=== PATIENT | female | born 1990 | race Caucasian/White ===

== ENCOUNTER 2017-02-14 10:04 | Emergency (ER) | payer MEDICAID ==
[2016-02-17 19:11] VITALS: BMI 21.1
[~2017-02-14 10:04] MED LIST: DIFLUCAN150 MG PO; MOTRIN600 MG; PERCOCET 2.5/321 TAB PO
[2017-02-14 11:07] LABS: BASOPHILS 0.2 % (0-2); EOSINOPHILS 0.2 % (0-7); HEMATOCRIT 42.1 % (36.0-48.0); HEMOGLOBIN 14.5 g/dL (12-16); IMMATURE GRANULOCYTES 0.3 % (0-5); LYMPHOCYTES 11.8 % (15-50); MCH 29.1 pg (26.0-34.0); MCHC 34.4 g/dL (31.0-37.0); MCV 84.4 fL (80.0-100.0); MEAN PLATELET VOLUME 9.6 fL (7.4-10.4); NEUTROPHILS 82.5 % (40-80); PLATELET COUNT 156 10x3/uL (130-400); RBC 4.99 10x6/uL (4.00-5.40); RDW 12.9 % (11.5-14.5); WBC 10.2 10x3/uL (4.8-10.8)
[2017-02-14 11:13] LABS: APPEARANCE CLEAR (CLEAR); COLOR YELLOW (YELLOW); HCG URINE NEGATIVE (NEGATIVE); SPECIFIC GRAVITY 1.015 (1.005-1.020)
[2017-02-14 11:14] LABS: BILIRUBIN NEGATIVE (NEGATIVE); GLUCOSE NEGATIVE (NEGATIVE); KETONE NEGATIVE (NEGATIVE); LEUKOCYTE ESTERASE NEGATIVE (NEGATIVE); NITRITE NEGATIVE (NEGATIVE); PROTEIN 1+ mg/dL (NEGATIVE); UROBILINOGEN NORMAL (NORMAL)
[2017-02-14 11:15] LABS: BACTERIA MODERATE /hpf (NONE SEEN); EPITHELIAL CELLS 0-5 /hpf (0-5); RED CELLS - URINE NONE SEEN /hpf (0-5); WHITE CELLS - URINE NSEEN /hpf (0-5)
[2017-02-14 11:24] LABS: ALBUMIN 4.4 g/dL (3.4-5.0); ALKALINE PHOSPHATASE 40 U/L (46-116); ALT (SGPT) 27 U/L (10-68); AMYLASE - SERUM 53 U/L (25-115); BILIRUBIN - TOTAL 0.51 mg/dL (0.2-1.3); CALC OSMOLALITY 272 mosm/kg (275-300); CALCIUM 8.9 mg/dL (8.5-10.1); CARBON DIOXIDE 21.8 mmol/L (21.0-32.0); CHLORIDE - SERUM 105 mmol/L (98-107); CREATININE - SERUM 0.8 mg/dL (0.6-1.3); GLUCOSE 89 mg/dL (74-106); LIPASE 112 U/L (73-393); PROTEIN - SERUM 8.2 g/dL (6.4-8.2); SODIUM 137 mmol/L (136-145); UREA NITROGEN 12 mg/dL (7-18); eGFR NON AFRICAN AMERICAN > 90 mL/min (90-120)
== END 2017-02-14 13:30 | disposition home or self-care (01) ==
LOC: D.ER 10:04
PROVIDERS: Family Medicine; Nurse Practitioner Family
DX: R10.9 Unspecified abdominal pain (principal); R11.10 Vomiting, unspecified; K52.9 Noninfective gastroenteritis and colitis, unspecified

== ENCOUNTER → 2017-02-18 12:02 | Outpatient (CLI) | payer MEDICAID ==
[2016-02-17 19:11] VITALS: BMI 21.1
== END | disposition home or self-care (01) ==
LOC: D.RAD 12:02
DX: R10.30 Lower abdominal pain, unspecified (principal); K92.0 Hematemesis; K92.1 Melena; R19.7 Diarrhea, unspecified; K29.00 Acute gastritis without bleeding

== ENCOUNTER → 2017-03-04 14:28 | Outpatient (CLI) | payer MEDICAID ==
[2016-02-17 19:11] VITALS: BMI 21.1
== END | disposition home or self-care (01) ==
LOC: D.LABREF 14:28
DX: R10.30 Lower abdominal pain, unspecified (principal); K92.1 Melena

== ENCOUNTER → 2017-03-26 09:02 | Outpatient (CLI) | payer MEDICAID ==
[2016-02-17 19:11] VITALS: BMI 21.1
== END | disposition home or self-care (01) ==
LOC: D.RAD 09:02
DX: R10.30 Lower abdominal pain, unspecified (principal); K92.1 Melena

== ENCOUNTER → 2017-08-05 11:07 | Outpatient (CLI) | payer MEDICAID ==
[2016-02-17 19:11] VITALS: BMI 21.1
== END | disposition home or self-care (01) ==
LOC: D.US 11:07
DX: N64.89 Other specified disorders of breast (principal); O92.6 Galactorrhea